=== PATIENT | male | born 1990 | race Two or more races ===

== ENCOUNTER 2021-02-02 12:29 | Outpatient (CLI) | payer OTHER | END 2021-02-02 12:46 | disposition home or self-care (01) | LOC: EDBD 12:29 → RAD 12:29 | PROVIDERS: ATTEND Internal Medicine Cardiovascular Disease | DX: M12.9 Arthropathy, unspecified (principal); M19.90 Unspecified osteoarthritis, unspecified site ==

== ENCOUNTER 2021-04-06 13:53 | Outpatient (CLI) | payer OTHER | END 2021-04-06 14:13 | disposition home or self-care (01) | LOC: SONOGRAMA 13:53 → MAMO-SONO 14:15 | PROVIDERS: ATTEND Internal Medicine Cardiovascular Disease | DX: M23.305 Other meniscus derangements, unspecified medial meniscus, unspecified knee (principal) ==

== ENCOUNTER 2021-06-10 07:29 | Outpatient (CLI) | payer OTHER | END 2021-06-10 07:53 | disposition home or self-care (01) | LOC: TOM 07:29 | PROVIDERS: ATTEND Internal Medicine Cardiovascular Disease | DX: G93.89 Other specified disorders of brain (principal); M12.89 Other specific arthropathies, not elsewhere classified, multiple sites; R51.0 Headache with orthostatic component, not elsewhere classified ==

== ENCOUNTER 2021-09-26 08:00 | Outpatient (CLI) | payer OTHER | END 2021-09-26 08:30 | disposition home or self-care (01) | LOC: PPH VACUNA 08:00 | PROVIDERS: ATTEND Emergency Medicine Pediatric Emergency Medicine | DX: Z23 Encounter for immunization (principal) ==

== ENCOUNTER 2022-06-07 10:54 | Outpatient (CLI) | payer OTHER | END 2022-06-07 10:57 | disposition home or self-care (01) | LOC: NUCLEAR 10:54 | PROVIDERS: ATTEND Internal Medicine Cardiovascular Disease | DX: R07.9 Chest pain, unspecified (principal) ==